=== PATIENT | female | born 2000 | race Caucasian/White ===

== ENCOUNTER 2019-02-04 12:19 | Emergency (ER) | payer BC ==
[~2019-02-04] VITALS: Ht 152.4 cm; Wt 62.6 kg
[2019-02-04 12:25] VITALS: BP_SYST 131
--- NOTE | 2019-02-04 12:40 | NUR ---
Patient to ER bed 06 to gown for evaluation. Side rails up.
--- NOTE | 2019-02-04 12:41 | NUR ---
ER Dr. Kennedy at bedside examining patient.
[2019-02-04] MEDS ORDERED: KETOROLAC TROMETHAMINE 60 MG/2 ML VIAL IM ONE (12:45)
--- NOTE | 2019-02-04 12:48 | NUR ---
Pt AAOx4 ambulated into ED c/o RLQ abdominal pain radiating to groin accompanied vomiting x 2 this moring. Pt was referred to ED from urgent care due to hx of inflamed liver and ovarian cysts. Skin ipnk dry and warm, breathing even and unlabored. No other injuries/complaints per pt/noted. Will continue to monitior.
--- NOTE | 2019-02-04 13:58 | NUR ---
Patient given written and verbal discharge instructions and verbalizes understanding. ER MD Kennedy discussed with patient the results and treatment provided. Patient in stable condition. ID arm band removed. Rx of Miralax, Motrin given. Patient educated on pain management and to follow up with PMD. Pain Scale 0. Opportunity for questions provided and answered. Medication side effect fact sheet provided.
[2019-02-04 13:59] VITALS: BP_SYST 128
== END 2019-02-04 13:58 | disposition home or self-care (01) ==
LOC: SED 12:19
DX: R10.30 Lower abdominal pain, unspecified (principal); R11.10 Vomiting, unspecified; R03.0 Elevated blood-pressure reading, without diagnosis of hypertension
CPT/HCPCS: 74018; 81002; 81025; 96372; 99283; J1885